=== PATIENT | female | born 1935 | race Caucasian/White ===

== ENCOUNTER 2016-10-28 13:22 | Observation (INO) | payer MEDICARE, BC ==
[~2016-10-28] VITALS: Ht 176.5 cm; Wt 101.0 kg
[~2016-10-28 13:22] MED LIST: ALDACTONE25 MG PO; CHILDRENS CHEWA81 MG PO; COLACE100 MG PO; CYMBALTA30 MG PO; DIOVAN80 MG PO; ELAVIL10 MG PO; FEOSOL325 MG PO; FLONASE 0.05% N16 GM; GLUCOPHAGE500 MG PO; GLUCOTROL10 MG PO; K-DUR20 MEQ PO; LANTUS100 UNIT/1 SQ; LASIX40 MG PO; LEVAQUIN500 MG PO; MAGOX 400400 MG PO; MIRALAX17 GM PO; NEURONTIN300 MG PO; PROTONIX40 MG PO; SINGULAIR10 MG PO; ULTRAM50 MG PO; ZANTAC300 MG PO; ZOFRAN ODT4 MG PO
[2016-10-28 16:10] LABS: BASO % 0.3 % (0.1-1.2); EOS # 0.5 10_X3_uL (0.0-0.4); EOS % 5.1 % (0.7-5.8); GRAN # 5.7 10_X3_uL (1.6-6.1); GRAN % 61.7 % (34.0-71.1); HEMATOCRIT 35.6 % (34-45); HEMOGLOBIN 11.6 g/dL (11.2-15.7); LYMPH # 2.3 10_X3_uL (1.2-3.7); LYMPH % 24.9 % (19.3-51.7); MEAN CORPUSCULAR HEMOGLOBIN 31.1 pg (27.0-33.0); MEAN CORPUSCULAR HGB CONC 32.6 g/dL (32.0-36.0); MEAN CORPUSCULAR VOLUME 95.4 fL (79-95); MEAN PLATELET VOLUME 8.9 fl (7.5-11.5); MONO # 0.7 10_X3_uL (0.2-0.9); PLATELET COUNT 388 x10_3/uL (182-369); RED BLOOD COUNT 3.73 x10_6/uL (3.9-5.2); WHITE BLOOD COUNT 9.2 x10_3/uL (4.0-10.0)
[2016-10-28 16:18] LABS: CALCIUM 9.3 mg/dL (8.7-10.7); POTASSIUM 4.8 mmol/L (3.5-5.1)
== END 2016-10-29 13:50 | disposition short-term general hospital (02) ==
LOC: ER 13:22 → MS 19:29 → UNDODEPER 11-01 20:23
PROVIDERS: Emergency Medicine; ADMIT Family Medicine
DX: J90 Pleural effusion, not elsewhere classified (principal); R91.8 Other nonspecific abnormal finding of lung field; R07.89 Other chest pain; Z87.01 Personal history of pneumonia (recurrent); M62.50 Muscle wasting and atrophy, not elsewhere classified, unspecified site; J44.9 Chronic obstructive pulmonary disease, unspecified; J98.11 Atelectasis; I11.0 Hypertensive heart disease with heart failure; I50.9 Heart failure, unspecified; E11.9 Type 2 diabetes mellitus without complications; Z90.12 Acquired absence of left breast and nipple; Z96.643 Presence of artificial hip joint, bilateral; Z90.710 Acquired absence of both cervix and uterus; Z79.4 Long term (current) use of insulin; Z79.899 Other long term (current) drug therapy; Z88.0 Allergy status to penicillin; Z85.3 Personal history of malignant neoplasm of breast
CPT/HCPCS: 36415; 71020; 71250; 80048; 82962; 85025; 87040; 87400; 94640; 96365; 99070; 99284; 99284-25; G0378; J7040; Q9967